=== PATIENT | male | born 1970 | race American Indian/Alaskan Native ===

== ENCOUNTER 2016-04-28 16:18 | Emergency (ER) | payer SELFPAY ==
--- NOTE | 2016-04-28 20:15 | Emergency Department Report ---
Chief Complaint: Psych Stated Complaint: EVAL Time Seen by Provider: 04/28/16 20:11 - HPI History of Present Illness: Patient has been non-compliance with medication, c/o hopeless, depression and withdrawals from Heroin. Patient denies thought of harms to self or others. Last use of Heroin was last night - ROS Review of Systems: all other systems are unremarkable except for documentation in HPI - Exam Vital Signs: Vital Signs 04/28/16 18:36 Temperature 98.7 F Pulse Rate 73 Respiratory 16 Rate Blood Pressure 180/110 O2 Sat by Pulse 99 Oximetry Physical Exam: Gen: well developed and nourished, NAD Psych: flat affect MSE screening note: Focused history and physical exam performed. Due to findings the following was ordered: laboratory studies and Mental Health evaluation ordered ED Disposition for MSE Condition: Stable
[2016-04-28 21:06] LABS: Basophils % (Auto) 0.9 % (0.0-1.8); Eosinophils % (Auto) 3.9 % (0.0-4.3); Hematocrit 44.5 % (35.5-45.6); Hemoglobin 14.7 gm/dl (11.8-15.2); Mean Corpuscular HGB Conc 33 % (32-34); Mean Corpuscular Hemoglobin 29 pg (28-32); Mean Corpuscular Volume 89 fl (84-94); Platelet Count 685 K/mm3 (140-440); Red Blood Count 4.99 M/mm3 (3.65-5.03); Red Cell Distribution Width 16.3 % (13.2-15.2); White Blood Count 10.3 K/mm3 (4.5-11.0)
[2016-04-28 21:12] LABS: Alanine Aminotransferase 23 units/L (7-56); Albumin/Globulin Ratio 1.3 %; Alkaline Phosphatase 62 units/L (35-129); BUN/Creatinine Ratio 14.44; Bilirubin,Total 0.3 mg/dL (0.1-1.2); Blood Urea Nitrogen 13 mg/dL (9-20); Calcium 8.9 mg/dL (8.4-10.2); Carbon Dioxide 29 mmol/L (22-30); Chloride 102.6 mmol/L (98-107); Glucose 95 mg/dL (75-100); Potassium 4.6 mmol/L (3.6-5.0); Sodium 142 mmol/L (137-145)
[2016-04-28 21:29] LABS: Anion Gap 15 mmol/L
[2016-04-28 22:09] LABS: Urine Drugs of Abuse Note Disclamer
[2016-04-28 22:23] LABS: Bilirubin,Urine NEG (Negative); Blood,Urine NEG (Negative); Ketones,Urine NEG (Negative); Leukocyte Esterase,Urine NEG (Negative); Mucus,Urine 2+ /HPF; Nitrite,Urine NEG (Negative); Protein,Urine <15 mg/dL mg/dL (Negative); RBC,Urine < 1.0 /HPF (0.0-6.0); Urobilinogen,Urine < 2.0 mg/dL (<2.0)
[2016-04-29] MEDS ORDERED: ZOFRAN IM ONE (02:54)
[2016-04-29] MEDS ORDERED: BENADRYL IM ONE (02:55)
[2016-04-29] MEDS ORDERED: ATIVAN IM ONE (02:55)
--- NOTE | 2016-04-29 03:02 | Emergency Department Report ---
HPI - General Chief Complaint: Psych Time Seen by Provider: 04/29/16 02:46 - HPI HPI: Room 9 The patient is a 45-year-old male presenting with a chief complaint of heroin withdrawal. Patient states he came in because he is attempting to detox from heroin. The patient states she has a history of snorting heroin and his last use occurred yesterday. Patient states she's had cramping nausea vomiting and some diarrhea. Patient states he wants detox. Patient denies suicidal or homicidal ideation. Patient denies auditory or visual hallucinations. The patient states he had a history of detox in the past approximately one to 2 years ago. Location: Mental state, gastrointestinal system Duration: [see above] Quality: Cramping, nausea Severity: Moderate Modifying factors: [see above] Context: [see above] Mode of transportation: [not driving] ED Past Medical Hx - Past Medical History Previous Medical History?: Yes Hx Psychiatric Treatment: Yes (PTSD) - Surgical History Past Surgical History?: No - Family History Family history: no significant - Social History Smoking Status: Current Some Day Smoker Substance Use Type: Heroin (nasal. Last use yesterday) - Medications Home Medications: Home Medications Medication Instructions Recorded Confirmed Last Taken Type Diphenoxylate HCl/Atropine 1 each PO QID PRN #20 tablet 04/29/16 Unknown Rx [Lomotil 2.5-0.025 mg Tablet] LORazepam [Ativan] 1 mg PO BID PRN #4 tab 04/29/16 Unknown Rx Promethazine [Phenergan TAB] 25 mg PO Q6HR PRN #20 tab 04/29/16 Unknown Rx ED Review of Systems ROS: Stated complaint: MH EVAL Other details as noted in HPI Comment: All other systems reviewed and negative Constitutional: denies: chills, fever Eyes: denies: eye pain, eye discharge, vision change Respiratory: denies: cough, shortness of breath, wheezing Cardiovascular: denies: chest pain, palpitations Endocrine: no symptoms reported Gastrointestinal: abdominal pain (cramping), nausea, vomiting, diarrhea Genitourinary: denies: urgency, dysuria Musculoskeletal: myalgia Skin: denies: rash, lesions Neurological: denies: headache, weakness, paresthesias Psychiatric: denies: anxiety, depression Hematological/Lymphatic: denies: easy bleeding, easy bruising Physical Exam - Physical Exam Vital Signs: Vital Signs 04/28/16 04/29/16 18:36 02:07 Temperature 98.7 F Pulse Rate 73 Respiratory 16 18 Rate Blood Pressure 180/110 O2 Sat by Pulse 99 Oximetry Physical Exam: GENERAL: The patient is well-developed well-nourished male lying on stretcher not appearing to be in acute distress. [] HEENT: Normocephalic. Atraumatic. Extraocular motions are intact. Patient has moist mucous membranes. NECK: Supple. Trachea midline CHEST/LUNGS: Clear to auscultation. There is no respiratory distress noted. HEART/CARDIOVASCULAR: Regular. There is no tachycardia. There is no gallop rub or murmur. ABDOMEN: Abdomen is soft, nontender. Patient has normal bowel sounds. There is no abdominal distention. SKIN: There is no rash. There is no edema. There is no diaphoresis. NEURO: The patient is awake, alert, and oriented. The patient is cooperative. The patient has normal speech MUSCULOSKELETAL: There is no evidence of acute injury. ED Course Vital Signs 04/28/16 04/29/16 18:36 02:07 Temperature 98.7 F Pulse Rate 73 Respiratory 16 18 Rate Blood Pressure 180/110 O2 Sat by Pulse 99 Oximetry - Consultations Consultation #1: 04/29/16 04:26 [facility] with [facility]. States he will give the patient a referral for a Center where the patient can walk and tomorrow for detox ED Medical Decision Making - Lab Data Result diagrams: 04/28/16 20:22 04/28/16 20:22 Laboratory Tests 04/28/16 04/28/16 04/28/16 20:22 20:22 20:22 WBC 10.3 RBC 4.99 Hgb 14.7 Hct 44.5 MCV 89 MCH 29 MCHC 33 RDW 16.3 H Plt Count 685 H Lymph % (Auto) 29.7 [place] % (Auto) 9.6 H Eos % (Auto) 3.9 Baso % (Auto) 0.9 Lymph # 3.0 [place] # 1.0 H Eos # 0.4 Baso # 0.1 Seg Neutrophils % 55.9 Seg Neutrophils # 5.8 Sodium 142 Potassium 4.6 Chloride 102.6 Carbon Dioxide 29 Anion Gap 15 BUN 13 Creatinine 0.9 Estimated GFR > 60 BUN/Creatinine Ratio 14.44 Glucose 95 Calcium 8.9 Total Bilirubin 0.3 AST 25 ALT 23 Alkaline Phosphatase 62 Total Protein 7.0 Albumin 4.0 Albumin/Globulin Ratio 1.3 Urine Color Urine Turbidity Urine pH Ur Specific [place] Urine Protein Urine Glucose (UA) Urine Ketones Urine Blood Urine Nitrite Urine Bilirubin Urine Urobilinogen Ur Leukocyte Esterase Urine WBC (Auto) Urine RBC (Auto) U Epithel Cells (Auto) Urine Mucus Salicylates < 0.3 L Urine Opiates Screen Urine Methadone Screen Acetaminophen Ur Barbiturates Screen Ur Phencyclidine Scrn Ur Amphetamines Screen U Benzodiazepines Scrn Urine Cocaine Screen U Marijuana (THC) Screen Drugs of Abuse Note Plasma/Serum Alcohol 04/28/16 04/28/16 04/28/16 20:22 20:22 21:34 WBC RBC Hgb Hct MCV MCH MCHC RDW Plt Count Lymph % (Auto) [place] % (Auto) Eos % (Auto) Baso % (Auto) Lymph # [place] # Eos # Baso # Seg Neutrophils % Seg Neutrophils # Sodium Potassium Chloride Carbon Dioxide Anion Gap BUN Creatinine Estimated GFR BUN/Creatinine Ratio Glucose Calcium Total Bilirubin AST ALT Alkaline Phosphatase Total Protein Albumin Albumin/Globulin Ratio Urine Color Yellow Urine Turbidity Clear Urine pH 6.0 Ur Specific [place] 1.028 Urine Protein <15 mg/dl Urine Glucose (UA) Neg Urine Ketones Neg Urine Blood Neg Urine Nitrite Neg Urine Bilirubin Neg Urine Urobilinogen < 2.0 Ur Leukocyte Esterase Neg Urine WBC (Auto) 1.0 Urine RBC (Auto) < 1.0 U Epithel Cells (Auto) < 1.0 Urine Mucus 2+ Salicylates Urine Opiates Screen Urine Methadone Screen Acetaminophen < 15.0 Ur Barbiturates Screen Ur Phencyclidine Scrn Ur Amphetamines Screen U Benzodiazepines Scrn Urine Cocaine Screen U Marijuana (THC) Screen Drugs of Abuse Note Plasma/Serum Alcohol < 0.01 04/28/16 21:34 WBC RBC Hgb Hct MCV MCH MCHC RDW Plt Count Lymph % (Auto) [place] % (Auto) Eos % (Auto) Baso % (Auto) Lymph # [place] # Eos # Baso # Seg Neutrophils % Seg Neutrophils # Sodium Potassium Chloride Carbon Dioxide Anion Gap BUN Creatinine Estimated GFR BUN/Creatinine Ratio Glucose Calcium Total Bilirubin AST ALT Alkaline Phosphatase Total Protein Albumin Albumin/Globulin Ratio Urine Color Urine Turbidity Urine pH Ur Specific [place] Urine Protein Urine Glucose (UA) Urine Ketones Urine Blood Urine Nitrite Urine Bilirubin Urine Urobilinogen Ur Leukocyte Esterase Urine WBC (Auto) Urine RBC (Auto) U Epithel Cells (Auto) Urine Mucus Salicylates Urine Opiates Screen Presumptive negative Urine Methadone Screen Presumptive negative Acetaminophen Ur Barbiturates Screen Presumptive negative Ur Phencyclidine Scrn Presumptive negative Ur Amphetamines Screen Presumptive negative U Benzodiazepines Scrn Presumptive negative Urine Cocaine Screen Presumptive negative U Marijuana (THC) Screen Presumptive negative Drugs of Abuse Note Disclamer Plasma/Serum Alcohol - Differential Diagnosis heroin Abuse, heroin withdrawal Critical care attestation.: If time is entered above; I have spent that time in minutes in the direct care of this critically ill patient, excluding procedure time. ED Disposition Clinical Impression: Heroin abuse, Heroin withdrawal Disposition: DISCHARGED TO HOME OR SELFCARE Is pt being admited?: No Does the pt Need Aspirin: No Condition: Stable Instructions: Narcotic Abuse (ED) Additional Instructions: Return to the emergency department immediately should you develop worsening symptoms, fever, inability to tolerate food or liquid or any other concerns. Prescriptions: Diphenoxylate HCl/Atropine [Lomotil 2.5-0.025 mg Tablet] 1 each PO QID PRN #20 tablet PRN Reason: Diarrhea LORazepam [Ativan] 1 mg PO BID PRN #4 tab PRN Reason: Anxiety Promethazine [Phenergan TAB] 25 mg PO Q6HR PRN #20 tab PRN Reason: Nausea Referrals: PRIMARY CARE, [Primary Care Provider] - 3-5 Days Time of Disposition: 04:29
[2016-04-29 04:23] VITALS: BP 132/72
== END 2016-04-29 06:02 | disposition home or self-care (01) ==
LOC: ED 16:18
DX: F11.23 Opioid dependence with withdrawal (principal); F43.10 Post-traumatic stress disorder, unspecified; F17.200 Nicotine dependence, unspecified, uncomplicated
CPT/HCPCS: 36415; 80053; 80307; 81001; 85025; 96372; 99284; G0480; J1200; J2060; J2405; 80320